=== PATIENT | male | born 1945 | race Two or more races ===

== ENCOUNTER 2017-12-05 12:45 | Inpatient (IN) | payer OTHER ==
[~2017-12-05] VITALS: Ht 177.8 cm; Wt 87.1 kg
[2017-12-05] MEDS ORDERED: CYMBALTA60 MG PO (15:08)
[2017-12-05] MEDS ORDERED: NORVASC5 MG PO (15:08)
[2017-12-05] MEDS ORDERED: LOSARTAN POTASS50 MG PO (15:08)
[2017-12-05] MEDS ORDERED: CRESTOR20 MG PO (15:09)
[2017-12-05] MEDS ORDERED: TOPROL XL50 MG PO (15:09)
[2017-12-13] MEDS ORDERED: GABAPENTIN800 MG PO (16:23)
[2017-12-13] MEDS ORDERED: CIPROFLOXACIN750 MG PO ×2 (16:24→16:27)
[2017-12-13] MEDS ORDERED: DOCUSATE SODIU100 MG PO (16:24)
[2017-12-13] MEDS ORDERED: CLONAZEPAM1 MG PO (16:25)
[2017-12-13] MEDS ORDERED: PERCOCET 5-3251 EACH PO (16:25)
== END 2017-12-13 17:30 | disposition home or self-care (01) | DRG 454 ==
LOC: SURH 12-12 04:35 → O/R 12-12 04:35 → SURH 12-12 10:15
PROVIDERS: Orthopaedic Surgery Orthopaedic Surgery of the Spine
PROC: 0SG0071 Fusion of Lumbar Vertebral Joint with Autologous Tissue Substitute, Posterior Approach, Posterior Column, Open Approach (ICD-10-PCS; 2017-12-12)
PROC: 0ST20ZZ Resection of Lumbar Vertebral Disc, Open Approach (ICD-10-PCS; 2017-12-12)
PROC: 0SG00AJ Fusion of Lumbar Vertebral Joint with Interbody Fusion Device, Posterior Approach, Anterior Column, Open Approach (ICD-10-PCS; 2017-12-12)
PROC: 07DS3ZZ Extraction of Vertebral Bone Marrow, Percutaneous Approach (ICD-10-PCS; 2017-12-12)
PROC: 0SG00A0 Fusion of Lumbar Vertebral Joint with Interbody Fusion Device, Anterior Approach, Anterior Column, Open Approach (ICD-10-PCS; principal; 2017-12-12 10:15)
DX: M48.061 Spinal stenosis, lumbar region without neurogenic claudication (principal); M51.06 Intervertebral disc disorders with myelopathy, lumbar region; M47.26 Other spondylosis with radiculopathy, lumbar region; I10 Essential (primary) hypertension